=== PATIENT | female | born 1990 | race Caucasian/White ===

== ENCOUNTER 2016-07-19 20:49 | Emergency (ER) | payer OTHER ==
[~2016-07-19 20:49] MED LIST: LEVO.075 PO; LITH300C2 PO; ZYPR10TA9 PO
[2016-07-19] MEDS ORDERED: LORazepam 2 MG/ML VIAL IM ONE (21:00)
[2016-07-19] MEDS ORDERED: HALOPERIDOL LACTATE 5 MG/ML AMP IM ONE (21:00)
[2016-07-19] MEDS ORDERED: diphenhydrAMINE HCL 50 MG/ML VIAL IM ONE (21:00)
--- NOTE | 2016-07-19 21:09 | PD ---
HPI Chief Complaint: Psychiatric Symptoms Time Seen by Provider: 21:00 Travel History International Travel<30 days: No Contact w/Intl Traveler<30days: No History of Present Illness HPI This is a 25-year-old female who presents to the emergency department brought in under a Hoffman act. She is making suicidal statements but was also very agitated and was threatening to jump off of the [facility] bridge. Per the hoffman act she is a known drug user and evidently recently quit rehab. Pt. doesn' t provide much information. PFSH Past Medical History Bipolar Disorder: Yes Anxiety: Yes Diminished Hearing: No Inguinal Hernia: Yes (RIGHT GROIN-REPAIRED) Neurologic: No Integumentary: Yes (CHRONIC STAPH INFECTIONS) Immunizations Current: Yes Migraines: No Thyroid Disease: Yes (HYPOACTIVE- ) : 3 Para: 2 Miscarriage: 1 Past Surgical History Abdominal Surgery: Yes (HERNIA) Section: Yes Other Surgery: Yes (HERNIA, C SECTION) Social History Alcohol Use: Yes (states that she has been drinking wine during this encouraged to ) Tobacco Use: Yes (smokes a half a pack of cigarettes per day) Substance Use: Yes (METH, K2 ) Allergies-Medications (Allergen,Severity, Reaction): Coded Allergies: Sulfa (Verified Allergy, Severe, "THROAT CLOSES UP,BLISTERS,GO BLIND", ) Reported Meds & Prescriptions Reported Meds & Active Scripts Active Zyprexa Zydis (Olanzapine) 10 Mg Tab 10 Mg PO DAILY 30 Days Synthroid (Levothyroxine Sodium) 75 Mcg Tab 75 Mcg PO DAILY@0600 30 Days Reported Eskalith ([place] Carbonate) 300 Mg Cap 300 Mg PO TID Review of Systems ROS Limitations: Intoxication Physical Exam Narrative GENERAL:Agitated. SKIN: Focused skin assessment warm and dry. HEAD: Atraumatic. Normocephalic. EYES: Pupils equal and round. No injection or drainage. ENT: Moist mucous membranes NECK: Trachea midline. CARDIOVASCULAR: Regular rate and rhythm. No murmur appreciated. RESPIRATORY: Clear to auscultation. Breath sounds equal bilaterally. GASTROINTESTINAL: Abdomen soft, non-tender, nondistended. MUSCULOSKELETAL: No obvious deformities. NEUROLOGICAL: Awake and alert. No obvious cranial nerve deficits. Moving all extremities. PSYCHIATRIC: Agitated, yelling and screaming at staff. Data Data Last Documented VS Vital Signs Date Time Temp Pulse Resp B/P Pulse Ox O2 Delivery O2 Flow Rate FiO2 07/19/16 21:12 98.8 86 18 102/58 96 Orders Haloperidol Inj (Haldol Inj) (07/19/16 21:00) Lorazepam Inj (Ativan Inj) (07/19/16 21:00) Diphenhydramine Inj (Benadryl Inj) (07/19/16 21:00) Complete Blood Count With Diff (07/19/16 21:02) Comprehensive Metabolic Panel (07/19/16 21:02) ^ Insert Iv (07/19/16 21:02) Alcohol (Ethanol) (07/19/16 21:02) Drug Screen, Random Urine (07/19/16 21:02) Psych Screen (07/19/16 21:09) Restraints Non-Violent DEJA.Q3H (07/19/16 21:30) Labs Laboratory Tests Test 07/19/16 07/19/16 21:30 21:35 Urine Opiates Screen NEG Urine Barbiturates Screen NEG Urine Amphetamines Screen NEG Urine Benzodiazepines Screen NEG Urine Cocaine Screen NEG Urine Cannabinoids Screen POS White Blood Count 6.0 TH/MM3 Red Blood Count 4.11 MIL/MM3 Hemoglobin 12.3 GM/DL Hematocrit 37.0 % Mean Corpuscular Volume 90.0 FL Mean Corpuscular Hemoglobin 30.0 PG Mean Corpuscular Hemoglobin 33.4 % Concent Red Cell Distribution Width 12.6 % Platelet Count 187 TH/MM3 Mean Platelet Volume 8.2 FL Neutrophils (%) (Auto) 56.0 % Lymphocytes (%) (Auto) 37.2 % Monocytes (%) (Auto) 5.6 % Eosinophils (%) (Auto) 0.7 % Basophils (%) (Auto) 0.5 % Neutrophils # (Auto) 3.4 TH/MM3 Lymphocytes # (Auto) 2.2 TH/MM3 Monocytes # (Auto) 0.3 TH/MM3 Eosinophils # (Auto) 0.0 TH/MM3 Basophils # (Auto) 0.0 TH/MM3 CBC Comment DIFF FINAL Differential Comment Sodium Level 146 MEQ/L Potassium Level 3.1 MEQ/L Chloride Level 110 MEQ/L Carbon Dioxide Level 24.7 MEQ/L Anion Gap 11 MEQ/L Blood Urea Nitrogen 7 MG/DL Creatinine 0.67 MG/DL Estimat Glomerular Filtration 106 ML/MIN Rate Random Glucose 87 MG/DL Calcium Level 8.7 MG/DL Total Bilirubin 0.2 MG/DL Aspartate Amino Transf 72 U/L (AST/SGOT) Alanine Aminotransferase 757 U/L (ALT/SGPT) Alkaline Phosphatase 67 U/L Total Protein 7.1 GM/DL Albumin 3.9 GM/DL Ethyl Alcohol Level 174 MG/DL MDM Medical Decision Making Medical Screen Exam Complete: Yes Emergency Medical Condition: Yes Interpretation(s) Afebrile, no tachycardia, normotensive No leukocytosis Hypernatremia Mild hypokalemia ALT is 757 of uncertain etiology Alcohol is 174 Urine drug screen is positive for cannabinoids. Differential Diagnosis Substance-induced psychosis, bipolar disorder, kirsten, substance intoxication Narrative Course This is a 25-year-old female who presents to the emergency department acutely psychotic likely in the setting of substance abuse. When she arrived she had to be physically restrained and she received IM chemical sedation. I reassessed her on several occasions and she became increasingly calm. Her urine drug screen is positive for cannabinoids. She has an elevated ALT which is somewhat unusual. I added a CPK. This is reassuring and I think the patient can be medically cleared and she can have this followed up by her primary care physician as an outpatient. Critical Care Narrative Aggregate critical care time was 35 minutes. Time to perform other separately billable procedures was not included in the critical care time. My time did not include minutes spent treating any other patients simultaneously or on activities that did not directly contribute to the patient's treatment. The services I provided to this patient were to treat and/or prevent clinically significant deterioration that could result in: disability, I provided critical care services requiring my management, as noted below: Chart data review, documentation time, medication orders and management, vital sign assessments/reviewing monitor data, ordering and reviewing lab tests, ordering and interpreting/reviewing x-rays and diagnostic studies, care of the patient and discussion of the patient with the admitting physicians. Anabela Jasso MD Jul 19, 2016 21:09
[2016-07-19 21:12] VITALS: BP 102/58; PULSE 86; RESP 18; TEMP 98.8; O2SAT 96
[2016-07-19 21:49] LABS: AUTOMATED NEUTROPHIL # 3.4 TH/MM3 (1.8-7.7); BASOPHIL % 0.5 % (0.0-2.0); EOSINOPHIL % 0.7 % (0.0-4.0); HEMO FLAGS DIFF FINAL; LYMPH % 37.2 % (9.0-44.0); LYMPHOCYTE # 2.2 TH/MM3 (1.0-4.8); MEAN CORPUSCULAR HGB CONC 33.4 % (32.0-36.0); MONO % 5.6 % (0.0-8.0); PLATELET COUNT 187 TH/MM3 (150-450); RED BLOOD COUNT 4.11 MIL/MM3 (4.00-5.30); RED CELL DISTRIBUTION WIDTH 12.6 % (11.6-17.2)
[2016-07-19 21:56] LABS: AMPHETAMINE, URINE NEG (NEG); BARBITURATES, URINE NEG (NEG); COCAINE, URINE NEG (NEG)
[2016-07-19 22:17] LABS: ALT (GPT) 757 U/L (10-53); ANION GAP 11 MEQ/L (5-15); AST (GOT) 72 U/L (15-37); BICARBONATE 24.7 MEQ/L (21.0-32.0); BLOOD UREA NITROGEN 7 MG/DL (7-18); CHLORIDE 110 MEQ/L (98-107); GLOMERULAR FILTRATION RATE 106 ML/MIN (>89); POTASSIUM 3.1 MEQ/L (3.5-5.1); SODIUM (NA) 146 MEQ/L (136-145)
[2016-07-19 22:20] LABS: ALKALINE PHOSPHATASE 67 U/L (45-117); TOTAL BILIRUBIN ADULT 0.2 MG/DL (0.2-1.0)
[2016-07-20 01:04] LABS: CKMB 2.6 NG/ML (0.5-3.6)
[2016-07-20 02:22] VITALS: BP 150/70; PULSE 96; RESP 18; TEMP 98.6; O2SAT 97
[2016-07-20 05:40] VITALS: BP 111/53; PULSE 89; RESP 18; TEMP 98.3; O2SAT 95
[2016-07-20 10:41] VITALS: BP 108/53; PULSE 81; RESP 18; O2SAT 99
[2016-07-20 12:01] VITALS: BP 108/53; PULSE 81; RESP 18; O2SAT 99
--- NOTE | 2016-07-20 12:09 | PD ---
History of Present Illness Chief Complaint: Psychiatric Symptoms Time Seen by Provider: 12:00 Travel History International Travel<30 Days: No Contact w/Intl Traveler<30days: No Known affected area: No Legal Status Legal Status: Hoffman Act Hoffman Act Signed By: Светлана [place] Hoffman Act Comment: BA signed by: CANDELARIA FERNANDEZ Badge#[id number], Case#[id number] History of Present Illness: History of Present Illness HPI This is a 25-year-old female with history of substance use disorder and possibly bipolar disorder who who presents to the emergency department brought in under a Hoffman act initiated by CANDELARIA. The report alleges that she stated she wanted to kill herself of the [employer] bridge and that she was sending suicidal texts to her mother. Upon arrival to ED she was agitated and did not provide much information. She was monitored in secure environment and did not present any behavioral concerns and no suicidality. EMR is reviewed. She was admitted to [facility] in 2016 for a substance induced kirsten. At that time she admitted to using methamphetamines. Current toxicology is positive for cannabinoids and BAL of 174. Patient is alert, oriented, calm. She is irritable but not agitated or aggressive. She states " I drank too much last night . I don't know why I am here. I was having an argument with my mother but did not send any text messages . I don't have a reason to hurt myself'. She does not exhibit any kirsten or hypomania. No psychosis and no suicidal or homicidal ideation. she is requesting discharge. PFSH Past Medical History Bipolar Disorder: Yes Anxiety: Yes Diminished Hearing: No Inguinal Hernia: Yes (RIGHT GROIN-REPAIRED) Neurologic: No Integumentary: Yes (CHRONIC STAPH INFECTIONS) Immunizations Current: Yes Migraines: No Thyroid Disease: Yes (HYPOACTIVE- ) Tetanus Vaccination: Unknown Influenza Vaccination: No ?: Not : 3 Para: 2 Miscarriage: 1 Past Surgical History Abdominal Surgery: Yes (HERNIA) Section: Yes Other Surgery: Yes (HERNIA, C SECTION) Psychiatric History Psychiatric History Hx Psychiatric Treatment: Pt reports being admitted to [facility] in June 2015 Is currently not in treatmetn No hx of previous sucide attempts. History of Inpatient Treatment: Yes Guns or firearms in home: No Social History Hx Alcohol Use: Yes (states that she has been drinking wine during this encouraged to ) Hx Tobacco Use: Yes (smokes a half a pack of cigarettes per day) Hx Substance Use: Yes (Admits using Meth) Substance Use Type: Alcohol, Marijuana, Amphetamines-Stimulants Other Substances Used: Pt admits top self medicating with, Meth, weed, K2 Hx of Substance Use Treatment: Yes Family Psychiatric History Negative Allergies-Medications (Allergen,Severity, Reaction): Coded Allergies: Sulfa (Verified Allergy, Severe, "THROAT CLOSES UP,BLISTERS,GO BLIND", ) Reported Meds & Prescriptions Reported Meds & Active Scripts Active Zyprexa Zydis (Olanzapine) 10 Mg Tab 10 Mg PO DAILY 30 Days Synthroid (Levothyroxine Sodium) 75 Mcg Tab 75 Mcg PO DAILY@0600 30 Days Reported Eskalith ([place] Carbonate) 300 Mg Cap 300 Mg PO TID Review of Systems Except as stated in HPI: all other systems reviewed are Neg Exam Alert: Yes Guffey: Person (0x4) Mood: Calm Affect: Appropriate Speech: Clear, Logical Eye Contact: Normal Memory Intact: Comment (No impairmetn) Hallucinations: Other (negative) Delusions: No Suicidal: Ideation (mike any) Homicidal: Ideation (deneis any) Insight/Judgement Poor. Not impaired MDM Medical Decision Making Medical Record Reviewed: Yes Assessment/Plan 25 year old female with hx of substance use disorder who while intoxicated verbalized thoghts of wanting to jump off a bridge. She did not make any attempts at harming herself. Once clinically sober she denies any suicidal or homicidal ideation, intent or plan. She denies having made any statements indicating she wanted to harm herself. At this time she does not meet criteria for BA. BA lifted. recommend abstinence from substances. Orders Haloperidol Inj (Haldol Inj) (07/19/16 21:00) Lorazepam Inj (Ativan Inj) (07/19/16 21:00) Diphenhydramine Inj (Benadryl Inj) (07/19/16 21:00) Complete Blood Count With Diff (6/13/17 21:02) Comprehensive Metabolic Panel (07/19/16 21:02) ^ Insert Iv (07/19/16 21:02) Alcohol (Ethanol) (07/19/16 21:02) Drug Screen, Random Urine (07/19/16 21:02) Psych Screen (07/19/16 21:09) Restraints Non-Violent DEJA.Q3H (07/19/16 21:30) Creatine Kinase (Cpk) (07/20/16 00:24) CKMB (07/19/16 21:35) CKMB% (07/19/16 21:35) Diet Regular Basic (07/20/16 Breakfast) Diet Regular Basic (07/20/16 Lunch) Results Vital Signs Date Time Temp Pulse Resp B/P Pulse Ox O2 Delivery O2 Flow Rate FiO2 07/20/16 12:01 81 18 108/53 99 Room Air 07/20/16 10:41 81 18 108/53 99 Room Air 07/20/16 05:40 98.3 89 18 111/53 95 Room Air 07/20/16 02:22 98.6 96 18 150/70 97 07/19/16 21:12 98.8 86 18 102/58 96 Laboratory Tests Test 07/19/16 07/19/16 21:30 21:35 Urine Opiates Screen NEG Urine Barbiturates Screen NEG Urine Amphetamines Screen NEG Urine Benzodiazepines Screen NEG Urine Cocaine Screen NEG Urine Cannabinoids Screen POS White Blood Count 6.0 Red Blood Count 4.11 Hemoglobin 12.3 Hematocrit 37.0 Mean Corpuscular Volume 90.0 Mean Corpuscular Hemoglobin 30.0 Mean Corpuscular Hemoglobin 33.4 Concent Red Cell Distribution Width 12.6 Platelet Count 187 Mean Platelet Volume 8.2 Neutrophils (%) (Auto) 56.0 Lymphocytes (%) (Auto) 37.2 Monocytes (%) (Auto) 5.6 Eosinophils (%) (Auto) 0.7 Basophils (%) (Auto) 0.5 Neutrophils # (Auto) 3.4 Lymphocytes # (Auto) 2.2 Monocytes # (Auto) 0.3 Eosinophils # (Auto) 0.0 Basophils # (Auto) 0.0 CBC Comment DIFF FINAL Differential Comment Sodium Level 146 Potassium Level 3.1 Chloride Level 110 Carbon Dioxide Level 24.7 Anion Gap 11 Blood Urea Nitrogen 7 Creatinine 0.67 Estimat Glomerular Filtration 106 Rate Random Glucose 87 Calcium Level 8.7 Total Bilirubin 0.2 Aspartate Amino Transf 72 (AST/SGOT) Alanine Aminotransferase 757 (ALT/SGPT) Alkaline Phosphatase 67 Total Protein 7.1 Albumin 3.9 Ethyl Alcohol Level 174 Total Creatine Kinase 226 Creatine Kinase MB 2.6 Creatine Kinase MB % 1.2 Diagnosis Primary Impression: Substance induced mood disorder Psychiatrically Cleared: Yes Med/ Other Pt Specific Info: No Meds Exist/No RX given Disposition: 01 DISCHARGE HOME Condition: Stable Erin Frank Jul 20, 2016 12:09
== END 2016-07-20 13:07 | disposition home or self-care (01) ==
LOC: NEPD 20:49 → NEPJ 07-20 13:07
DX: F19.14 Other psychoactive substance abuse with psychoactive substance-induced mood disorder (principal); Z87.891 Personal history of nicotine dependence; F15.90 Other stimulant use, unspecified, uncomplicated; R45.1 Restlessness and agitation; E87.6 Hypokalemia
CPT/HCPCS: 80053; 80307; 82550; 82552; 85025; 96372; 99285; J1200; J1630; J2060

== ENCOUNTER 2018-02-16 22:49 | Inpatient (IN) ==
[2018-02-16] MEDS ORDERED: Ibuprofen 600 MG Tablet PO ONE (23:50)
[2018-02-17 00:11] LABS: Baso # (Auto) 0.1 th/mm3 (0.0-0.2); Baso % (Auto) 0.6 % (0.0-2.0); Eos # (Auto) 0.1 th/mm3 (0.0-0.4); Eos % (Auto) 1.4 % (0.0-4.0); Hematocrit 44.5 % (35.0-46.0); Hemoglobin 15.3 gm/dL (11.6-15.3); Lymph # (Auto) 2.4 th/mm3 (1.0-4.8); Lymph % (Auto) 25.6 % (9.0-44.0); Mean Corpuscular HGB Conc 34.3 % (32.0-36.0); Mean Corpuscular Hemoglobin 32.4 pg (27.0-34.0); Mean Corpuscular Volume 94.5 fL (80.0-100.0); Mean Platelet Volume 8.7 fL (7.0-11.0); Mono # (Auto) 0.6 th/mm3 (0.0-0.9); Mono % (Auto) 6.9 % (0.0-8.0); Neut # (Auto) 6.1 th/mm3 (1.8-7.7); Neut % (Auto) 65.5 % (16.0-70.0); Platelet Count 314 th/mm3 (150-450); Red Blood Count 4.71 mil/mm3 (4.00-5.30); Red Cell Distribution Width 12.8 % (11.6-17.2); White Blood Count 9.3 th/mm3 (4.0-11.0)
[2018-02-17 00:14] LABS: Amphetamine Screen,Urine Pos (Neg); Barbiturate Screen,Urine Neg (Neg); Cannabinoid Screen,Urine Neg (Neg); Cocaine Screen,Urine Neg (Neg)
[2018-02-17 00:15] LABS: Opiate Screen,Urine Neg (Neg)
[2018-02-17 00:30] LABS: Albumin 4.1 g/dL (3.4-5.0); Anion Gap 6 meq/L (5-15); Aspartate Aminotransferase 45 U/L (15-37); Blood Urea Nitrogen 13 mg/dL (7-18); Calcium 8.9 mg/dL (8.5-10.1); Carbon Dioxide 31.1 meq/L (21.0-32.0); Chloride 101 meq/L (98-107); Glomerular Filtration Rate 70 mL/min (>89); Glucose,Random 71 mg/dL (74-106); Magnesium 1.9 mg/dL (1.5-2.5); Potassium 3.7 meq/L (3.5-5.1); Sodium 138 meq/L (136-145)
--- NOTE | 2018-02-17 00:31 | ED ---
HPI General Chief Complaint: Psychiatric Symptoms Stated Complaint: psych eval Time Seen by Provider: 02/16/18 23:35 Source: patient Mode of arrival: ambulatory Limitations: no limitations History of Present Illness HPI Narrative: 27-year-old female came in voluntarily to get a psych exam. Patient says that she has been getting these vivid thoughts of killing herself by overdosing with heroin. Her friend recently from heroin overdose and since then this has become an obsessive-compulsive thought for her. Patient herself is an IV drug abuser and mainly uses meth. She says that she would do it but every time she gets very close to doing it she thinks of her mother and her 3 children which stops her. She says that she has been taking psych medications through [facility] but it does not seem to be helping. She has been trying to self medicate through street drugs. Currently she feels like she has nothing good or bad in her life and nothing to live for more look forward to. Vital signs are stable. Related Data Home Medications Medication Instructions Recorded Confirmed No Known Home Medications 02/16/18 02/16/18 Allergies Allergy/AdvReac Type Severity Reaction Status Date / Time Sulfa (Sulfonamide Allergy Severe "THROAT Verified 02/16/18 22:58 Antibiotics) CLOSES UP,BLISTERS,GO BLIND" Review of Systems ROS: all other systems reviewed are negative [facility] Medical History Medical History Anxiety (Acute) Bipolar 1 disorder (Acute) Hypoactive thyroid (Acute) PTSD (post-traumatic stress disorder) (Acute) Patient denies medical problems (Acute) Surgical History Surgical History Hx of section (Acute) Hx of hernia repair (Acute) Social History Social History Smoking Status: Current every day smoker Tobacco Type: Cigarettes How Often Do You Have a Drink Containing Alcohol: Monthly or less Recent Travel in [facility] within the Last 8 Weeks: No Recent Out of Country Travel within the Last 8 Weeks: No Substance Abuse Detail Amphetamines: Substance Use Status: Active Route Used Substance Abuse: By Mouth, Inhalation and Intravenously Heroin: Route Used Substance Abuse: Intravenously Immunization History Tetanus Immunization: Unsure Exam Narrative Exam Narrative: GENERAL: Awake, alert, anxious, rapid speech SKIN: Focused skin assessment warm/dry. HEAD: Atraumatic. Normocephalic. EYES: Pupils equal and round. No scleral icterus. No injection or drainage. ENT: No nasal bleeding or discharge. Mucous membranes pink and moist. NECK: Trachea midline. No JVD. CARDIOVASCULAR: Regular rate and rhythm. No murmur appreciated. RESPIRATORY: No accessory muscle use. Clear to auscultation. Breath sounds equal bilaterally. GASTROINTESTINAL: Abdomen soft, non-tender, nondistended. Hepatic and splenic margins not palpable. MUSCULOSKELETAL: No obvious deformities. No clubbing. No cyanosis. No edema. NEUROLOGICAL: Awake and alert. No obvious cranial nerve deficits. Motor grossly within normal limits. Normal speech. PSYCHIATRIC: Rapid and manic speech and affect; not normal insight her judgment. Course Initial Documented Vital Signs Temperature 98 F 02/16/18 22:53 Pulse Rate 98 H 02/16/18 22:53 Respiratory Rate 20 02/16/18 22:53 Blood Pressure 146/70 H 02/16/18 22:53 Pulse Oximetry 97 02/16/18 22:53 Last Documented Vital Signs Temperature 98 F 02/16/18 22:53 Pulse Rate 76 02/16/18 23:29 Respiratory Rate 20 02/17/18 00:00 Blood Pressure 127/79 02/17/18 00:00 Pulse Oximetry 98 02/17/18 00:00 Medical Decision Making MDM Narrative Medical decision making narrative: 12:31 AM awaiting for labs for medical clearance. Psych screen has been ordered. Medical Screen Exam Complete: Yes Emergency Medical Condition: Yes Lab Data Result diagrams: 02/16/18 23:40 02/16/18 23:40 POC Results POC Urine Results Negative Lab Results 02/16/18 02/16/18 Range/Units 23:40 23:40 WBC 9.3 (4.0-11.0) th/mm3 RBC 4.71 (4.00-5.30) mil/mm3 Hgb 15.3 (11.6-15.3) gm/dL Hct 44.5 (35.0-46.0) % MCV 94.5 (80.0-100.0) fL MCH 32.4 (27.0-34.0) pg MCHC 34.3 (32.0-36.0) % RDW 12.8 (11.6-17.2) % Plt Count 314 (150-450) th/mm3 MPV 8.7 (7.0-11.0) fL Neut % (Auto) 65.5 (16.0-70.0) % Lymph % (Auto) 25.6 (9.0-44.0) % [place] % (Auto) 6.9 (0.0-8.0) % Eos % (Auto) 1.4 (0.0-4.0) % Baso % (Auto) 0.6 (0.0-2.0) % Neut # (Auto) 6.1 (1.8-7.7) th/mm3 Lymph # (Auto) 2.4 (1.0-4.8) th/mm3 [place] # (Auto) 0.6 (0.0-0.9) th/mm3 Eos # (Auto) 0.1 (0.0-0.4) th/mm3 Baso # (Auto) 0.1 (0.0-0.2) th/mm3 WBC Differential . Differential Comment Auto diff final Urine Opiates Screen Neg (Neg) Ur Barbiturates Screen Neg (Neg) Ur Amphetamines Screen Pos H (Neg) U Benzodiazepines Scrn Neg (Neg) Urine Cocaine Screen Neg (Neg) U Cannabinoids Screen Neg (Neg) Discharge Plan Physicians Team ED Provider: Mariana Gibbs Primary Care Provider: Primary Care NicholasiYue Rxs /Orders / Referrals /Forms Prescriptions: No Action No Known Home Medications RF: 0 Status ED Status: With Doctor
[2018-02-17 00:32] LABS: Alanine Aminotransferase 47 U/L (10-53)
[2018-02-17 00:41] LABS: Alkaline Phosphatase 69 U/L (45-117); Total Protein 7.8 g/dL (6.4-8.2)
--- NOTE | 2018-02-17 19:01 | P.PNPSY ---
History of Present Illness HPI Narrative: 27-year-old, single, female, homeless, with reported history of bipolar disorder, substance use disorder mainly methamphetamine, who comes in voluntarily requesting a psychiatric evaluation with chief complaint of suicidal thoughts. ED documentation is reviewed and partially included in this note" patient says that she has been getting these vivid thoughts of killing herself by overdosing with heroin. Her friend recently from heroin overdose and since then this has become an obsessive-compulsive thought for her. Patient herself is an IV drug abuser and mainly uses meth. She says that she would do it but every time she gets very close to doing it she thinks of her mother and her 3 children which stops her. She says that she has been taking psych medications through [facility] but it does not seem to be helping. She has been trying to self medicate through street drugs. Currently she feels like she has nothing good or bad in her life and nothing to live for more look forward to." Patient has been irritable and somewhat demanding. She has not presented any evidence of any psychosis, her symptoms of irritability and self-reported history of anxiety may be related to her use of methamphetamine. She minimizes such and tells me that she has only been using for 4 weeks but review of her record indicates that she has a long history of methamphetamine abuse documented in her chart in 2016 and cocaine in 2011. Patient also reports she has been off her Depakote since her provider Yohannes Gilman at [facility] felt that with her current diagnosis of hepatitis it would be contraindicated. She has been off her medication since August. Patient's current toxicology is positive for amphetamine. At this time I will ask the staff to attempt to get her into [facility] for treatment of her substance abuse. She will be monitored in J pod overnight. I suspect that she may have improvement as she becomes clinically sober.
[2018-02-17] MEDS ORDERED: Acetaminophen 325 MG Tablet PO ONE (19:17)
[2018-02-18] MEDS ORDERED: Aluminum/Magnesium/Simethacone Susp 30 ML UDC PO PRN (09:02)
[2018-02-18] MEDS ORDERED: Bisacodyl 10 MG Supp RECTAL PRN (09:02)
[2018-02-18] MEDS ORDERED: Haloperidol 5 MG Tablet PO STA (15:00)
[2018-02-18] MEDS: Senna/Docusate Sodium 8.6/50 MG Tablet PO SCH (20:50)
[2018-02-19] MEDS: Senna/Docusate Sodium 8.6/50 MG Tablet PO SCH ×2 (08:45→23:05)
[2018-02-19 10:55] LABS: Calcium 8.7 mg/dL (8.5-10.1); Carbon Dioxide 28.1 meq/L (21.0-32.0)
[2018-02-19 10:59] LABS: Chol/HDL Ratio 2.64 Ratio; HDL Cholesterol 43.1 mg/dL (40.0-60.0)
[2018-02-19] MEDS ORDERED: Ibuprofen 600 MG Tablet PO PRN (13:20)
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
[2018-02-19 15:59] LABS: Hemoglobin A1c 4.7 % (4.3-6.0)
[2018-02-19] MEDS: QUEtiapine 25 MG Tablet PO SCH ×3 (16:24→23:06)
[2018-02-20] MEDS: QUEtiapine 25 MG Tablet PO SCH (08:52)
[2018-02-20] MEDS: Senna/Docusate Sodium 8.6/50 MG Tablet PO SCH (08:54)
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
== END 2018-02-20 11:40 | disposition home or self-care (01) | DRG 897 ==
LOC: NEPC 22:49 → NEDA 02-18 09:02 → H260 02-18 10:15
PROVIDERS: ADMIT Psychiatry & Neurology Psychiatry; ATTEND Psychiatry & Neurology Psychiatry
CPT/HCPCS: Q0163